=== PATIENT | male | born 2000 | race African-American/Black ===

== ENCOUNTER 2020-01-17 11:44 | Emergency (ER) | payer OTHER ==
[~2020-01-17] VITALS: Ht 167.6 cm; Wt 63.6 kg
[2020-01-17 12:00] VITALS: BP 102/46; Ht 167.6 cm; Wt 63.6 kg
[2020-01-17] MEDS ORDERED: NAPROSYN500 MG PO (13:08)
== END 2020-01-17 13:30 | disposition home or self-care (01) ==
LOC: D.ER 11:44
DX: S93.602A Unspecified sprain of left foot, initial encounter (principal); J45.909 Unspecified asthma, uncomplicated; Z72.0 Tobacco use; W51.XXXA Accidental striking against or bumped into by another person, initial encounter